=== PATIENT | female | born 2005 | race Hispanic/Latino ===

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

== ENCOUNTER 2024-01-11 16:35 | Emergency (ER) | payer OTHER, SELFPAY ==
[2024-01-11 16:35] VITALS: BP 115/68; PULSE 68; RESP 16; TEMP 36.4; O2SAT 100
--- NOTE | 2024-01-11 17:59 | ED.GENADULT ---
HPI - General Adult General Chief complaint: Head Injury Stated complaint: nose injury Source: patient and family Mode of arrival: ambulatory Limitations: no limitations History of Present Illness HPI narrative: 18-YEAR-OLD FEMALE CAME IN WITH HER MOTHER COMPLAINS OF HITTING HER NOSE WITH HER KNEE COMPLAINS OF SWELLING OVER BRIDGE OF HER NOSE AND SOME BLEEDING ON LEFT SIDE OF HER NOSE. SHE WAS WEARING A NOSE RING. THE BLEEDING IS STOPPED. SHE ALSO HAS A LITTLE BIT OF A HEADACHE. SHE HAD NO LOSS OF CONSCIOUSNESS AND DENIES ANY OTHER SWELLING LUMPS OR BUMPS WEAKNESS DIZZINESS LIGHTHEADEDNESS OR ANY OTHER COMPLAINTS. Related Data Home Medications Medication Instructions Recorded Confirmed No Home Medications 07/26/23 01/11/24 Allergies Allergy/AdvReac Type Severity Reaction Status Date / Time Milk Containing Products Allergy Mild Diarrhea Verified 01/11/24 16:44 (Dairy) peanut Allergy Mild Rash Verified 01/11/24 16:44 Penicillins Allergy Mild Itching, Verified 01/11/24 16:44 RASH Review of Systems Review of Systems: All systems reviewed & are unremarkable except as noted in HPI and below PMFSH Past Medical History Medical History Abnormal laboratory test Vulvar lesion Surgical History Surgical History History of excision of lesion Family History Family History Father Diabetes mellitus Grandparent Hypertension Other Family history of hypercholesterolemia Social History Social History Smoking status: Never smoker Second hand tobacco smoke exposure: No Alcohol intake: never Do You Feel Safe in your Home?: Yes Lack of Transportation: No Lack of Food: Never True Current Housing: I Have Housing Concerned About Future Housing: No Difficulty Paying Gas/Electric Bills: No Difficulty Paying for Meds: No Currently Unemployed: No Education: High School Diploma/GED Difficulty w/ Childcare or Family Care: No Gender identity (if verbalized by the patient): Female Exam Narrative: FEMALE NO APPARENT DISTRESS. HEAD NORMOCEPHALIC EXCEPT FOR SOME SWELLING OF THE BRIDGE OF HER NOSE WHICH IS TENDER WITHOUT ANY CREPITATION. HER RIGHT NARIS LOOKS NORMAL LEFT NARES SHOWS A NASAL RING IN PLACE WITH SOME DRIED BLOOD AROUND IT. THERE IS NO SEPTAL HEMATOMA. POSTERIOR PHARYNX IS CLEAR WITHOUT ANY ACTIVE BLEEDING NECK IS SUPPLE NONTENDER NEUROLOGICAL SHE IS ALERT AND ORIENTED MOTOR AND SENSORY GROSSLY INTACT GAIT IS NORMAL SPEECH IS NORMAL. Course Vital Signs Vital signs: Vital Signs Temperature 36.4 C 01/11/24 16:35 Pulse Rate 68 01/11/24 16:35 Respiratory Rate 16 01/11/24 16:35 Blood Pressure 115/68 01/11/24 16:35 Pulse Oximetry 100 01/11/24 16:35 Oxygen Delivery Room Air 01/11/24 16:35 Temperature 36.4 C 01/11/24 16:35 Pulse Rate 68 01/11/24 16:35 Respiratory Rate 16 01/11/24 16:35 Blood Pressure 115/68 01/11/24 16:35 Pulse Oximetry 100 01/11/24 16:35 Oxygen Delivery Room Air 01/11/24 16:35 Medical Decision Making MDM Narrative Medical decision making narrative: Patient placed in room: FOUR WITH HER MOTHER ? History and physical was performed. Independent Historian: MOTHER External Source Review: Differential Dx includes but not limited to: fracture dislocation continue Medications were Reviewed: Medications given: Independently Interpreted by me: Shared decision Making: evaluation was discussed with patient her mother all questions were asked and answered and they agreed with the plan. She would wait a week if it was still swollen she would get the outpatient x-ray of her nose with her primary care provider. And then follow-up with Plastic surgery
[2024-01-11 18:11] VITALS: BP 103/74; PULSE 72; RESP 16; TEMP 36.6; O2SAT 98
== END 2024-01-11 18:11 | disposition home or self-care (01) ==
PROVIDERS: Emergency Provider Emergency Medicine; PCP Physician Assistant
DX: S00.33XA Contusion of nose, initial encounter (principal); R04.0 Epistaxis; W22.8XXA Striking against or struck by other objects, initial encounter
CPT/HCPCS: 99282

== ENCOUNTER 2024-09-22 11:19 | Outpatient (CLI) | payer OTHER, SELFPAY ==
--- NOTE | ~2024-09-22 | XR_ITS ---
XR finger 4th RT min 2V 09/22/2024 11:47 Indication: Right fourth finger pain Procedure: 3 views right fourth finger Comparison: 07/28/2022 Findings: There is osteoarthritis of the fourth proximal interphalangeal joint. No acute fracture or traumatic malalignment. No significant soft tissue abnormality. No foreign bodies. 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 Reviewed, dictated and finalized at location A. 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
--- OUTSIDE RECORDS SUMMARY | 2024-09-22 11:23 | XMS_ITS | Data Portability ---
Author Organization [facility] Address [address] [address] Care Team Providers Care Rec Therapist Name Role Phone MPTAMIE Primary Care Provider Assessment No assessment recorded. Plan of Treatment Reminders Order Date Submit Date Provider Last Modified By Organization Details Last Modified Time Details Appointments None recorded . Lab CMP, serum or plasma 2023 024 [facility], [address] [facility] [address], [place], [address], 4 19:09:44 CBC w/ auto diff 2023 024 [facility], [address] [place] [address] 2, [place], [address], 4 19:09:45 CBC w/ auto diff 2023 024 [facility], [address], [place], [address], 4 08:24:21 TSH, ultra-se nsitive, serum 2023 024 [facility], [address], [place], [address], 4 08:24:18 CMP, serum or plasma 2023 024 [facility], [address], [place], [address], 4 08:24:18 iron + total iron-bin ding capacity (TIBC), serum 2023 024 [facility], [address], [place], [address], 4 08:24:19 ferritin , serum or plasma 2023 024 [facility], [address], [place], [address], 4 08:24:20 vitamin D, 25-hydro xy, total, serum 2023 [facility], [address], [place], [address], 4 08:24:22 magnesiu m, serum or plasma 2023 024 [facility], [address], [place], [address], 4 08:24:20 Referral hand surgeon referral 2024 025 [facility], [address] [place] [address], [facility] [address], [place], [address], 5 14:43:56 cardiolo gist referral 2023 024 TERRANCE Herrera DO, [address] [facility] [address], [place], [address], 4 10:56:25 neurolog ist referral 2023 024 yao Escobar MD, [address] [facility], [facility], [place], [address], 4 08:13:38 Procedures None recorded . Surgeries None recorded . Imaging XR, finger(s ), 2 or more view 2024 025 [email or web address], [address], [place], [address], 5 07:55:31 Medication Orders omeprazo le 20 mg capsule, delayed release 2023 024 [id number], [address] [place], [address], 4 16:15:31 Patient TargetsNo targets recorded. Patient Instructions Encounter Date Encounter Id Patient Instructions Last Modified By Organization Details Last Modified Time 07/01/2023 [id number] rhythm strip, EKG* [email or web address] Not available 07/01/2023 14:45:43 I have reviewed the patient's medical record and the note from this clinical encounter. I was available by phone for the duration of the visit. I agree with the assessment and plan with the following addendum: Pt will need to seek out care for eating disorder. This can be hard to find, tho there are several resources in the [facility] area. Daniel Engel MD [email or web address] Not available 07/05/2023 12:12:50 Reason for Referral Asw Specialist Referral for Sy ncope Referring Physician: [facility], Encounter Date: 07/01/2023 Neurologist Referral for Syn cope Referring Physician: [facility], Encounter Date: 07/01/2023 Hand Surgeon Referral for Pa in in finger of right hand Referring Physician: [facility], Encounter Date: 07/19/2024 Results Created Date Observation Date Name Description Value Unit Range Abnormal Flag Note LastModifiedBy Organization Detail LastModifiedTime 07/01/1907/02/2023 COMP. METAB OLIC PANEL (14) glucose 88 mg/dL 70-99 Not Available [facility] ([facility]) [address] [facility], [place], [address], 07/02/2023 08:24:17 07/01/19 24 07/02/2023 COMP. METAB OLIC PANEL (14) BUN 13 mg/dL 6-20 Not Available [facility] ([facility]) [address] [facility] [place], [address], 07/02/2023 08:24:17 07/01/19 24 07/02/2023 COMP. METAB OLIC PANEL (14) creatinine 0.99 mg/dL 0.57-1 .00 Not Available [facility] ([facility]) [address] [facility] [place], [address], 07/02/2023 08:24:17 07/01/19 24 07/02/2023 COMP. METAB OLIC PANEL (14) eGFR 85 mL/mi n/1.7 3 >59 Not Available [facility] ([facility]) [address] [facility] [place], [address], 07/02/2023 08:24:17 07/01/19 24 07/02/2023 COMP. METAB OLIC PANEL (14) BUN/creatini ne ratio 13 9-23 Not Available [facility] ([facility]) [address] [facility] [place], [address], 07/02/2023 08:24:17 07/01/19 24 07/02/2023 COMP. METAB OLIC PANEL (14) sodium 141 mmol/ L 134-14 4 Not Available [facility] ([facility]) [address] [facility] [place], [address], 07/02/2023 08:24:17 07/01/19 24 07/02/2023 COMP. METAB OLIC PANEL (14) potassium 3.4 mmol/ L 3.5-5. 2 below low normal Not Available [facility] ([facility]) [address] [facility] [place], [address], 07/02/2023 08:24:17 07/01/19 24 07/02/2023 COMP. METAB OLIC PANEL (14) chloride 97 mmol/ L 96-106 Not Available [facility] ([facility]) [address] [place], [address], 07/02/2023 08:24:17 07/01/19 24 07/02/2023 COMP. METAB OLIC PANEL (14) carbon dioxide, total 29 mmol/ L 20-29 Not Available [facility] ([facility]) [address], [place], [address], 07/02/2023 08:24:17 07/01/19 24 07/02/2023 COMP. METAB OLIC PANEL (14) calcium 9.5 mg/dL 8.7-10 .2 Not Available [facility] ([facility]) [address] [place], [address], 07/02/2023 08:24:17 07/01/19 24 07/02/2023 COMP. METAB OLIC PANEL (14) protein, total 7.2 g/dL 6.0-8. 5 Not Available [facility] ([facility]) [address] [place], [address], 07/02/2023 08:24:17 07/01/19 24 07/02/2023 COMP. METAB OLIC PANEL (14) albumin 4.4 g/dL 4.0-5. 0 Not Available [facility] ([facility]) [address] [place], [address], 07/02/2023 08:24:17 07/01/19 24 07/02/2023 COMP. METAB OLIC PANEL (14) globulin, total 2.8 g/dL 1.5-4. 5 Not Available [facility] ([facility]) [address] [place], [address], 07/02/2023 08:24:17 07/01/19 24 07/02/2023 COMP. METAB OLIC PANEL (14) A/G ratio 1.6 1.2-2. 2 Not Available [facility] ([facility]) [address] [place], [address], 07/02/2023 08:24:17 07/01/19 24 07/02/2023 COMP. METAB OLIC PANEL (14) bilirubin, total 0.3 mg/dL 0.0-1. 2 Not Available [facility] ([facility]) [address] [facility], [place], [address], 07/02/2023 08:24:17 07/01/19 24 07/02/2023 COMP. METAB OLIC PANEL (14) alkaline phosphatase 65 IU/L 42-106 Not Available [facility] ([facility]) [address] [facility], [place], [address], 07/02/2023 08:24:17 07/01/19 24 07/02/2023 COMP. METAB OLIC PANEL (14) AST (SGOT) 19 IU/L 0-40 Not Available [facility] ([facility]) [address] [place], [address], 07/02/2023 08:24:17 07/01/19 24 07/02/2023 COMP. METAB OLIC PANEL (14) ALT (SGPT) 13 IU/L 0-32 Not Available [facility] ([facility]) [address] [place], [address], 07/02/2023 08:24:17 07/01/19 24 07/02/2023 TSH RFX ON ABNOR MAL TO FREE T4 TSH 0.583 uIU/m L 0.450- 4.500 Not Available [facility] ([facility]) [address] [place], [address], 07/02/2023 08:24:18 07/01/19 24 07/02/2023 IRON AND TIBC iron bind.cap.(TI BC) 335 ug/dL 250-45 0 Not Available [facility] ([facility]) [address] [place], [address], 07/02/2023 08:24:19 07/01/19 24 07/02/2023 IRON AND TIBC UIBC 233 ug/dL 131-42 5 Not Available [facility] ([facility]) [address] [place], [address], 07/02/2023 08:24:19 07/01/19 24 07/02/2023 IRON AND TIBC iron 102 ug/dL 27-159 Not Available [facility] ([facility]) [address] [place], [address], 07/02/2023 08:24:19 07/01/19 24 07/02/2023 IRON AND TIBC iron saturation 30 % 15-55 Not Available [facility] ([facility]) [address] [place], [address], 07/02/2023 08:24:19 07/01/19 24 07/02/2023 MAGNE SIUM magnesium 2.5 mg/dL 1.6-2. 3 above high normal Not Available [facility] ([facility]) [address] [place], [address], 07/02/2023 08:24:20 07/01/1907/02/2023 OMKAR TIN ferritin 99 NG/mL 15-77 above high normal Not Available [facility] ([facility]) [address] [place], [address], 07/02/2023 08:24:20 07/01/1907/02/2023 CBC WITH DIFFE RENTI AL/PL ATELE T WBC 6.0 x10e3 /uL 3.4-10 .8 Not Available [facility] ([facility]) [address] [place], [address], 07/02/2023 08:24:21 07/01/19 24 07/02/2023 CBC WITH DIFFE RENTI AL/PL ATELE T RBC 4.31 x10e6 /uL 3.77-5 .28 Not Available [facility] ([facility]) [address] [facility] [place], [address], 07/02/2023 08:24:21 07/01/19 24 07/02/2023 CBC WITH DIFFE RENTI AL/PL ATELE T hemoglobin 12.6 g/dL 11.1-1 5.9 Not Available [facility] ([facility]) [address] [place], [address], 07/02/2023 08:24:21 07/01/19 24 07/02/2023 CBC WITH DIFFE RENTI AL/PL ATELE T hematocrit 37.3 % 34.0-4 6.6 Not Available [facility] ([facility]) [address] [place], [address], 07/02/2023 08:24:21 07/01/19 24 07/02/2023 CBC WITH DIFFE RENTI AL/PL ATELE T MCV 87 fL 79-97 Not Available [facility] ([facility]) [address] [place], [address], 07/02/2023 08:24:21 07/01/1907/02/2023 CBC WITH DIFFE RENTI AL/PL ATELE T MCH 29.2 pg 26.6-3 3.0 Not Available [facility] ([facility]) [address] [place], [address], 07/02/2023 08:24:21 07/01/1907/02/2023 CBC WITH DIFFE RENTI AL/PL ATELE T MCHC 33.8 g/dL 31.5-3 5.7 Not Available [facility] ([facility]) [address] [place], [address], 07/02/2023 08:24:21 07/01/19 24 07/02/2023 CBC WITH DIFFE RENTI AL/PL ATELE T RDW 11.8 % 11.7-1 5.4 Not Available [facility] ([facility]) [address] [place], [address], 07/02/2023 08:24:21 07/01/19 24 07/02/2023 CBC WITH DIFFE RENTI AL/PL ATELE T platelets 249 x10e3 /uL 150-45 0 Not Available [facility] ([facility]) [address] [facility], [place], [address], 07/02/2023 08:24:21 07/01/19 24 07/02/2023 CBC WITH DIFFE RENTI AL/PL ATELE T neutrophils 49 % notest ab. Not Available [facility] ([facility]) [address] [facility], [place], [address], 07/02/2023 08:24:21 07/01/19 24 07/02/2023 CBC WITH DIFFE RENTI AL/PL ATELE T lymphs 42 % notest ab. Not Available [facility] ([facility]) [address] [facility], [place], [address], 07/02/2023 08:24:21 07/01/19 24 07/02/2023 CBC WITH DIFFE RENTI AL/PL ATELE T monocytes 7 % notest ab. Not Available [facility] ([facility]) [address] [facility], [place], [address], 07/02/2023 08:24:21 07/01/19 24 07/02/2023 CBC WITH DIFFE RENTI AL/PL ATELE T eos 1 % notest ab. Not Available [facility] ([facility]) [address] [facility], [place], [address], 07/02/2023 08:24:21 07/01/19 24 07/02/2023 CBC WITH DIFFE RENTI AL/PL ATELE T basos 1 % notest ab. Not Available [facility] ([facility]) [address] [facility], [place], [address], 07/02/2023 08:24:21 07/01/19 24 07/02/2023 CBC WITH DIFFE RENTI AL/PL ATELE T neutrophils (absolute) 2.9 x10e3 /uL 1.4-7. 0 Not Available [facility] ([facility]) [address] [facility], [place], [address], 07/02/2023 08:24:21 07/01/19 24 07/02/2023 CBC WITH DIFFE RENTI AL/PL ATELE T lymphs (absolute) 2.5 x10e3 /uL 0.7-3. 1 Not Available [facility] ([facility]) [address] [facility], [place], [address], 07/02/2023 08:24:21 07/01/19 24 07/02/2023 CBC WITH DIFFE RENTI AL/PL ATELE T monocytes(ab solute) 0.4 x10e3 /uL 0.1-0. 9 Not Available [facility] ([facility]) [address] [facility], [place], [address], 07/02/2023 08:24:21 07/01/19 24 07/02/2023 CBC WITH DIFFE RENTI AL/PL ATELE T eos (absolute) 0.1 x10e3 /uL 0.0-0. 4 Not Available [facility] ([facility]) [address] [facility], [place], [address], 07/02/2023 08:24:21 07/01/19 24 07/02/2023 CBC WITH DIFFE RENTI AL/PL ATELE T baso (absolute) 0.0 x10e3 /uL 0.0-0. 2 Not Available [facility] ([facility]) [address] [place], [address], 07/02/2023 08:24:21 07/01/19 24 07/02/2023 CBC WITH DIFFE RENTI AL/PL ATELE T immature granulocytes 0 % notest ab. Not Available [facility] ([facility]) [address] [place], [address], 07/02/2023 08:24:21 07/01/19 24 07/02/2023 CBC WITH DIFFE RENTI AL/PL ATELE T immature grans (abs) 0.0 x10e3 /uL 0.0-0. 1 Not Available [facility] ([facility]) [address] [facility], [place], [address], 07/02/2023 08:24:21 07/01/19 24 07/02/2023 VITAM IN D, 25-HY DROXY vitamin D, 25-hydroxy 46.0 NG/mL 30.0-1 00.0 Vitam in D defic iency has been defin ed by the Insti tute of Medic ine and an Endoc rine Socie ty pract ice guide line as a level of serum 25-OH vitam in D less than 20 ng/mL (1,2) . The Endoc rine Socie ty went on to furth er defin e vitam in D insuf ficie ncy as a level betwe en 21 and 29 ng/mL (2). 1. IOM (Inst itute of Medic ine). 2010. Dieta ry refer ence pamela es for calci um and D. Meme epperson [place]: [facility] . 2. Amy bello MF, Demetrice casas [place], Johanna off-F errar i GURROLA, et al. Evalu ation , treat ment, and preve ntion of vitam in D defic iency : an Endoc rine Socie ty clini vinicius pract ice guide line. JCEM. 2010; 96(7) :1911 -30. Not Available [facility] ([facility]) [address] [facility], [place], [address], 07/02/2023 08:24:22 11/09/19 24 11/09/2023 COMP. METAB OLIC PANEL (14) glucose 86 mg/dL 70-99 Not Available [facility] [address] [place], [address], 11/09/2023 19:09:44 11/09/19 24 11/09/2023 COMP. METAB OLIC PANEL (14) BUN 10 mg/dL 6-20 Not Available [facility] [address] [place] [address], [address], 11/09/2023 19:09:44 11/09/19 24 11/09/2023 COMP. METAB OLIC PANEL (14) creatinine 0.79 mg/dL 0.76-1 .27 Not Available [facility] [address] [place] [address], [address], 11/09/2023 19:09:44 11/09/19 24 11/09/2023 COMP. METAB OLIC PANEL (14) eGFR 111 >=60 Units for eGFR value s are mL/mi n/1.7 3 The eGFR Calcu latio n has not been valid ated for patie nts under the age of 18. If test resul ts are displ ayed for a patie nt under the age of 18, disre hyacinth that value . Not Available [facility] [address] [place] [address], [address], 11/09/2023 19:09:44 11/09/19 24 11/09/2023 COMP. METAB OLIC PANEL (14) BUN/creatini ne ratio 12 9-23 Not Available [facility] [address] [place] [address], [address], 11/09/2023 19:09:44 11/09/19 24 11/09/2023 COMP. METAB OLIC PANEL (14) sodium 140 mmol/ L 134-14 4 Not Available [facility] [address] [place] [address], [address], 11/09/2023 19:09:44 11/09/19 24 11/09/2023 COMP. METAB OLIC PANEL (14) potassium 4.3 mmol/ L 3.5-5. 2 Not Available [facility] [address] [place] [address], [address], 11/09/2023 19:09:44 11/09/19 24 11/09/2023 COMP. METAB OLIC PANEL (14) chloride 101 mmol/ L 96-106 Not Available [facility] [address] [place] [address], [address], 11/09/2023 19:09:44 11/09/19 24 11/09/2023 COMP. METAB OLIC PANEL (14) carbon dioxide, total 29 mmol/ L 20-29 Not Available [facility] [address] [place] [address], [address], 11/09/2023 19:09:44 11/09/19 24 11/09/2023 COMP. METAB OLIC PANEL (14) calcium 9.8 mg/dL 8.7-10 .2 Not Available [facility] [address] [place] [address], [address], 11/09/2023 19:09:44 11/09/19 24 11/09/2023 COMP. METAB OLIC PANEL (14) protein, total 7.2 g/dL 6.0-8. 5 Not Available [facility] [address] [place] [address], [address], 11/09/2023 19:09:44 11/09/19 24 11/09/2023 COMP. METAB OLIC PANEL (14) albumin 4.4 g/dL 4.0-5. 0 Not Available [facility] [address] [place] [address], [address], 11/09/2023 19:09:44 11/09/19 24 11/09/2023 COMP. METAB OLIC PANEL (14) globulin, total 2.8 g/dL 1.5-4. 5 Not Available [facility] [address] [place] [address], [address], 11/09/2023 19:09:44 11/09/19 24 11/09/2023 COMP. METAB OLIC PANEL (14) A/G ratio 2.0 1.2-2. 2 Not Available [facility] [address] [place], [address], 11/09/2023 19:09:44 11/09/19 24 11/09/2023 COMP. METAB OLIC PANEL (14) bilirubin, total 0.3 mg/dL 0.0-1. 2 Not Available [facility] [address] [place], [address], 11/09/2023 19:09:44 11/09/19 24 11/09/2023 COMP. METAB OLIC PANEL (14) alkaline phosphatase 61 IU/L 42-106 Not Available [facility] [address] [place], [address], 11/09/2023 19:09:44 11/09/19 24 11/09/2023 COMP. METAB OLIC PANEL (14) AST (SGOT) 20 IU/L 0-40 Not Available [facility] Department [address] [place] [address], [address], 11/09/2023 19:09:44 11/09/19 24 11/09/2023 COMP. METAB OLIC PANEL (14) ALT (SGPT) 12 IU/L 0-32 Not Available [facility] Department [address] [place] [address], [address], 11/09/2023 19:09:44 11/09/19 24 11/09/2023 CBC WITH DIFFE RENTI AL/PL ATELE T WBC 7.2 x10e3 /uL 3.4-10 .8 Not Available [facility] [address] [place], [address], 11/09/2023 19:09:45 11/09/19 24 11/09/2023 CBC WITH DIFFE RENTI AL/PL ATELE T RBC 4.39 x10e6 /uL 3.77-5 .28 Not Available [facility] [address] [place] [address], [address], 11/09/2023 19:09:45 11/09/19 24 11/09/2023 CBC WITH DIFFE RENTI AL/PL ATELE T hemoglobin 12.7 g/dL 11.1-1 5.9 Not Available [facility] [address] [place], [address], 11/09/2023 19:09:45 11/09/19 24 11/09/2023 CBC WITH DIFFE RENTI AL/PL ATELE T hematocrit 39.0 % 34.0-4 6.6 Not Available [facility] [address] [place], [address], 11/09/2023 19:09:45 11/09/19 24 11/09/2023 CBC WITH DIFFE RENTI AL/PL ATELE T MCV 89 fL 79-97 Not Available [facility] [address] [place], [address], 11/09/2023 19:09:45 11/09/19 24 11/09/2023 CBC WITH DIFFE RENTI AL/PL ATELE T MCH 28.9 pg 26.6-3 3.0 Not Available [facility] [address] [place], [address], 11/09/2023 19:09:45 11/09/19 24 11/09/2023 CBC WITH DIFFE RENTI AL/PL ATELE T MCHC 32.6 g/dL 31.5-3 5.7 Not Available [facility] [address] [place], [address], 11/09/2023 19:09:45 11/09/19 24 11/09/2023 CBC WITH DIFFE RENTI AL/PL ATELE T RDW 12.7 % 11.5-1 4.5 Not Available [facility] [address] [place], [address], 11/09/2023 19:09:45 11/09/19 24 11/09/2023 CBC WITH DIFFE RENTI AL/PL ATELE T platelets 299 x10e3 /uL 150-45 0 Not Available [facility] [address] [place], [address], 11/09/2023 19:09:45 11/09/19 24 11/09/2023 CBC WITH DIFFE RENTI AL/PL ATELE T neutrophils 61 % notest b. Not Available [facility] [address] [place], [address], 11/09/2023 19:09:45 11/09/19 24 11/09/2023 CBC WITH DIFFE RENTI AL/PL ATELE T lymphs 32 % notest b. Not Available [facility] [address] [place], [address], 11/09/2023 19:09:45 11/09/19 24 11/09/2023 CBC WITH DIFFE RENTI AL/PL ATELE T monocytes 6 % notest b. Not Available [facility] [address] [place], [address], 11/09/2023 19:09:45 11/09/19 24 11/09/2023 CBC WITH DIFFE RENTI AL/PL ATELE T eos 1 % notest b. Not Available [facility] [address] [place], [address], 11/09/2023 19:09:45 11/09/19 24 11/09/2023 CBC WITH DIFFE RENTI AL/PL ATELE T basos 0 % notest b. Not Available [facility] [address] [place], [address], 11/09/2023 19:09:45 11/09/19 24 11/09/2023 CBC WITH DIFFE RENTI AL/PL ATELE T neutrophils (absolute) 4.4 x10e3 /uL 1.4-7. 0 Not Available [facility] [address] [place], [address], 11/09/2023 19:09:45 11/09/19 24 11/09/2023 CBC WITH DIFFE RENTI AL/PL ATELE T lymphs (absolute) 2.3 x10e3 /uL 0.7-3. 1 Not Available [facility] [address] [place], [address], 11/09/2023 19:09:45 11/09/19 24 11/09/2023 CBC WITH DIFFE RENTI AL/PL ATELE T monocytes(ab solute) 0.4 x10e3 /uL 0.1-0. 9 Not Available [facility] [address] [place], [address], 11/09/2023 19:09:45 11/09/19 24 11/09/2023 CBC WITH DIFFE RENTI AL/PL ATELE T eos (absolute) 0.1 x10e3 /uL 0.0-0. 4 Not Available [facility] [address] [place], [address], 11/09/2023 19:09:45 11/09/19 24 11/09/2023 CBC WITH DIFFE RENTI AL/PL ATELE T baso (absolute) 0.0 x10e3 /uL 0.0-0. 2 Not Available [facility] [address] [place], [address], 11/09/2023 19:09:45 11/09/19 24 11/09/2023 CBC WITH DIFFE RENTI AL/PL ATELE T immature granulocytes 0.3 % notest b. Not Available [facility] [address] [place], [address], 11/09/2023 19:09:45 11/09/19 24 11/09/2023 CBC WITH DIFFE RENTI AL/PL ATELE T immature grans (abs) 0.0 x10e3 /uL 0.0-0. 1 Not Available [facility] [address] [place], [address], 11/09/2023 19:09:45 11/09/19 24 11/09/2023 CBC WITH DIFFE JENNIFER AL/PL ATELE T NRBC 0 % 0-0 Not Available [facility] [address], [place], [address], 11/09/2023 19:09:45 Result Notes None recorded. 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 Medical Equipment None Reported. Allergies Allergen ID Allergen Name Allergen Category Reaction Reaction Severity Criticality Documentation Date Start Date Code Code System Note Provider Name and Address Organization Details Recorded Time 102354 Product containin g penicilli n (product) medicatio n rash Not available Not available 07/01/2023 28791 [address], [place] - [facility] 4 14:08:37 [id number] Milk (substanc e) food,medi cation diarrhea Not available Not available 07/01/2023 31860 [address], [place] [facility] 4 14:08:55 Medications Name Sig Start Date Stop Date Status Note LastModified by Organization Details LastModified Time potassium chloride 20 mEq/15 mL oral liquid TAKE 7.5 MILLILITERS DILUTED IN ONE-HALF GLASS OF COLD WATER OR JUICE BY ORAL ROUTE ONCE DAILY active Not Available Not Available N ot Available buspirone 10 mg tablet TAKE 1 TABLET BY MOUTH TWICE A DAY active Not Available Not Available No t Available omeprazole 20 mg capsule,randy yed release Take 1 capsule every day by oral route for 30 days. 2023 active Not Available Not Available Not Avai lable naproxen 500 mg tablet TAKE 1 TABLET BY MOUTH TWICE A DAY NEEDED FOR PAIN active Not Available Not Available No t Available Klor-Con M20 mEq tablet,exten ded release TAKE 1 TABLET BY MOUTH EVERY DAY WITH FOOD active Not Available Not Available No t Available omeprazole 20 mg-sodium bicarbonate 1,680 mg oral packet active Not Available Not Available Not Available Vestura (28) 3 mg-0.02 mg tablet TAKE 1 TABLET BY MOUTH DAILY active Not Available Not Available Not Available Vitals Date Recorded Body height Body mass index (BMI) Body mass index (BMI) Percentile per age and sex Body weight Heart rate Oxygen saturation Oxygen saturation in Arterial blood by Pulse oximetry Systolic blood pressure Diastolic blood pressure Provider Name and Address Organization Details Last Updated DateTime 4 162.56 cm 23.6 kg/m2 72 % 30658.5 5 g 77 /min 96 % 96 % 103 mm[Hg] 65 mm[Hg] Liliana Guerrero MA [facility] 4 14:13:36 Date Recorded Body height Body mass index (BMI) Percentile per age and sex Body mass index (BMI) Body weight Heart rate Systolic blood pressure Diastolic blood pressure Provider Name and Address Organization Details Last Updated DateTime 5 162.56 cm 48 % 21.5 kg/m2 15260.0 5 g 69 /min 96 mm[Hg] 63 mm[Hg] Liliana Guerrero MA [facility] SIF 5 15:37:39 Date Recorded Body height Heart rate Oxygen saturation Oxygen saturation in Arterial blood by Pulse oximetry Systolic blood pressure Diastolic blood pressure Provider Name and Address Organization Details Last Updated DateTime 4 162.56 cm 79 /min 99 % 99 % 106 mm[Hg] 68 mm[Hg] Liliana Guerrero MA [facility] 4 12:26:15 Date Recorded Body height Body mass index (BMI) Body mass index (BMI) Percentile per age and sex Body weight Heart rate Oxygen saturation Oxygen saturation in Arterial blood by Pulse oximetry Systolic blood pressure Diastolic blood pressure Provider Name and Address Organization Details Last Updated DateTime 4 162.56 cm 23.7 kg/m2 71 % 75181.7 5 g 76 /min 98 % 98 % 99 mm[Hg] 62 mm[Hg] Liliana Guerrero [place] [facility] 16:00:33 Social History Question Answer Notes LastModified by Organizat ion Details LastModified Time Tobacco Smoking Status Never Smoker Liliana Guerrero MA null, [place] - [facility] 07/01/2023 14:10:02 What Was The Date Of Your Most Recent Tobacco Screening? 07/19/2024 Information not available 07/19/2024 Has Tobacco Cessation Counseling Been Provided? Yes Information not available 07/01/2023 On What Date Was Tobacco Cessation Counseling Provided? 07/19/2024 Information not available 07/19/2024 Sex: Unknown Functional Status Question Answer Note LastModified by Organization D etails LastModified Time Do you or have you ever used any other forms of tobacco or nicotine? No Information not available 07/01/2023 What is your level of alcohol consumption? None Information not available 07/01/2023 Mental Status None recorded. Family History Relationship Description Onset Age of this Age Resolved Age Notes LastModified by Organization Details LastModified Time Father No current problems or disability Not available 06/30 14:09:52 Father Diabetes mellitus Not available 2023 14:11:22 Mother No current problems or disability Not available 06/30 14:09:52 Sister Asthma Not available 07/01/2023 14:11:13 Medical History Condition Response Coronary Artery Disease N Other N High Blood Pressure N Atrial Fibrillation N Thyroid Problems N Kidney or Bladder Problems N GI Problems N Depression N COPD N Blood Clots N Skin Problems N Anemia N Heart Attack (ND) N Diabetes N Anxiety Disorder N Muscle, Joint, or Bone Problems N Seizures/Epilepsy N Acid Reflux (GERD) N Cancer N Stroke N Asthma N Allergies N High Cholesterol N Hepatitis N Liver Disease N Headaches N Osteoporosis N Heart Failure N Gynecological History Statement/Question Response Date of LMP Obstetrics History GPAL:G 0 P 0 0 0 0 Type Value Multiple Births 0 Full Term 0 Induced 0 Spontaneous 0 Premature 0 Living 0 Ectopics 0 Total 0 Immunizations Vaccine Type Date Status Note Provider Nam e and Address Organization Details Recorded Time meningococcal B, OMV 0 completed Liliana Guerrero [place], [place] [facility] 07/01/2023 13:56:36 HPV9 7 completed Liliana [place] [facility] 07/01/2023 13:56:36 HPV9 6 completed Lil[place] [facility] 07/01/2023 13:56:36 Influenza, live, trivalent, intranasal 2 completed Lil[place] [facility] 07/01/2023 13:56:36 meningococcal ACWY, unspecified formulation 0 completed Lil[place] [facility] 07/01/2023 13:56:36 MMR 1 completed Lil[place] [facility] 07/01/2023 13:56:36 MMR 9 completed Lil[place] [facility] 07/01/2023 13:56:36 MMR 6 completed Lil[place] [facility] 07/01/2023 13:56:36 DTaP-IPV 1 completed [place] [facility] 07/01/2023 13:56:36 Tdap 6 ronda [place] [facility] 07/01/2023 13:56:36 Pneumococcal conjugate PCV 13 6 ronda [place] [facility] 07/01/2023 13:56:36 Pneumococcal conjugate PCV 13 6 [place]onda [place] [facility] 07/01/2023 13:56:36 Pneumococcal conjugate PCV 13 5 ronda [place] [facility] 07/01/2023 13:56:36 Pneumococcal conjugate PCV 13 5 completed Liliana [place] [facility] 07/01/2023 13:56:36 varicella 0 ronda Guerre[place], [place] [facility] 07/01/2023 13:56:36 varicella 4 completed Lil[place] [facility] 07/01/2023 13:56:36 varicella 9 completed [place] [facility] 07/01/2023 13:56:36 OPV 6 completed [place] [facility] 07/01/2023 13:56:36 OPV 9 completed [place] [facility] 07/01/2023 13:56:36 OPV 5 completed [place] [facility] 07/01/2023 13:56:36 OPV 5 completed [place] [facility] 07/01/2023 13:56:36 HPV, quadrivalent 6 completed [place] [facility] 07/01/2023 13:56:36 Hep B, adolescent or pediatric 6 completed [place] [facility] 07/01/2023 13:56:36 Hep B, adolescent or pediatric 5 completed [place] [facility] 07/01/2023 13:56:36 Hep B, adolescent or pediatric 5 completed [place] [facility] 07/01/2023 13:56:36 Hep A, ped/adol, 3 dose 7 completed [place] [facility] 07/01/2023 13:56:36 Hep A, ped/adol, 3 dose 0 completed [place] [facility] 07/01/2023 13:56:36 Hep A, ped/adol, 3 dose 8 completed [place] [facility] 07/01/2023 13:56:36 Hib (HbOC) 6 completed [place] [facility] 07/01/2023 13:56:36 Hib (HbOC) 6 completed [place] [facility] 07/01/2023 13:56:36 Hib (HbOC) 5 completed [place] [facility] 07/01/2023 13:56:36 Hib (HbOC) 5 completed [place] [facility] 07/01/2023 13:56:36 meningococcal MCV4P 4 completed [place] [facility] 07/01/2023 13:56:36 meningococcal MCV4P 2 completed [place] [facility] 07/01/2023 13:56:36 meningococcal MCV4P 6 completed [place] [facility] 07/01/2023 13:56:36 DTaP 6 completed [place] [facility] 07/01/2023 13:56:36 DTaP 5 completed [place] [facility] 07/01/2023 13:56:36 DTaP 5 completed [place] [facility] 07/01/2023 13:56:36 DTaP 6 completed [place] [facility] 07/01/2023 13:56:36 DTaP, unspecified formulation 9 completed [place] [facility] 07/01/2023 13:56:36 Influenza, live, quadrivalent, intranasal 5 completed [place] [facility] 07/01/2023 13:56:36 Influenza, split virus, quadrivalent, PF 7 completed [place] [facility] 07/01/2023 13:56:36 Influenza, split virus, quadrivalent, PF 7 completed GENA Bolden, [place] - [facility] 07/01/2023 13:56:36 Influenza, split virus, quadrivalent, PF 0 completed GENA [place], [place] [facility] 07/01/2023 13:56:36 Past Encounters Encounter ID Performer Location Encounter Start Date Encounter Closed Date Diagnosis/Indication Diagnosis SNOMED-CT Code Diagnosis ICD10 Code Diagnosis Note [id number] BRIGITTE DESIR [facility] [address] [place] [address] 07/01/2023 13:34:40 07/01/2023 15:59:28 Syncope [id number] R55 had hospital visit in [facility] episodes passing out. abnormal ekg and K in hospital (requestin g records). CT and MRI normal per patient. mom concerned for bulimia but patient denies. she does spend 2 hours in gym and drinks 1 gallon of water. unable to provide much diet info, will have f/u and will bring log. discussed importance of proper nutrition, over-hydra ting. denies anxiety and depression .PEX: A0X3, CN normal, RRR, lungs clear - cardiology - she is heading to get ekg now- labs in office [id number] Daniel peterson MD [facility] [address] [place] [address] 11/09/2023 11:52:51 11/09/2023 13:38:00 Syncope [id number] R55 had hospital visit in [facility] episodes passing out. abnormal ekg and K in hospital (requestin g records). CT and MRI normal per patient. has not had any more episodes. she admits today she was throwing up food before to control weight. She is no longer doing this.PEX: A0X3, CN normal, RRR, lungs clear - cardiology visit completed, normal Binge eating disorder 43 [id number] F50.81 admits to dealing with vomiting episodes before during toxic relationsh ipno longer purging, endorses postive sef-boiler coverer epeat cmp due to low potassiumm om concerned for bruising, check cbc (normal 06/2023) [id number] Karan Bob MD [facility] [address] [place] [address] 04/10/2024 15:52:57 04/10/2024 16:33:41 Epigastric pain [id number] R10.13 three episodes of epigastric pain w/o red flag sx after spicy foods or tomatoes. f/u one month. 1.Avoid lying flat 3 to 4 hours after eating or drinking.2 .Elevate the head of bed 4-8 inches.3.A void tight clothing around the waist.4.De crease dietary fat intake.5. Avoid acidic foods (citrus and tomato-bas ed products), alcohol, caffeinate d beverages, chocolate, onions, garlic, salt, and peppermint oil.6. Avoid large meals.7. Avoid drinking coffee, or carbonated beverages. 8. Weight loss can help with symptoms, try to diet and exercise. [id number] Karan Bob MD [facility] [address] [place] [address] 07/19/2024 15:31:59 07/19/2024 16:41:23 Pain in finger of right hand [id number] 40217 M79.644 Mike fractured finger in 2022 and continues to have swelling, pain and limited ROM since this time. would like to see hand surgeon. PEX: R hand ring finger PIP swollen and unable to bend Health Concerns Section Related Observation LastModified by Organization Detai ls LastModified Time None Recorded Concern Status LastModified by Organization Details LastModified Time None Recorded Advance Directives Directive None Recorded Payers Encounter Date Sequence Insurance Name Policy Number Policy [place] Covered Member ID [place] Member ID Guarantor Name 07/01/2023 1 [facility] (MEDICARE REPLACEMENT/AD VANTAGE - HMO) Mike Wang [id number] Mike Wang 11/09/2023 1 [facility] - DOS ON OR AFTER 20 (MEDICAID REPLACEMENT - HMO) Mike Wang [id number] Mike Flemingzares 04/10/2024 1 [facility] - DOS ON OR AFTER 20 (MEDICAID REPLACEMENT - HMO) Mike Wang [id number] Mike Wang 07/19/2024 1 [facility] - DOS ON OR AFTER 20 (MEDICAID REPLACEMENT - HMO) Mike Wang [id number] Mike Wang Notes Date Note Type Note Provider Name and Address Organization Details Recorded Time 07/01/2023 text/html Mike is an 17 YO F presenting with syncopal episodes She has been passing out since last january. She has [facility] and they told her she had low potassium and abnormal EKG but normal Head scans. she says she has had MRI and CT. Will obtain records. episodes have been happening 1-2 x per day. She states she eats normal meals, works out 2 hours per day, drinks 1 gallon of water. States she has not worked out this week and has not had any episodes. Patient is daughter from another patient here. Mother advised me patient does have bulimia. I asked patient if she throws up, has diarrhea (laxatives) or had restrictive eating and she replied no. She has not seen cardiology or neurology. 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 She denies anxiety or depression. states she does have stress when in school but is on break this week. Is in a happy relationship. declines sti testing today, I had them checked a few months ago. denies sx. denies drug use/alcohol use. Daniel Engel MD Attn: Accounting[address] [place], [address], [facility] 07/05/2023 12:12:54 11/09/2023 text/html Patient here wit h mom today for syncope f/u today admits she was purging after eating while in a toxic relationship. Since breaking up in June she is no longer vomiting after eating. She has not had any more episodes of syncope or pre-syncope. mom is here and is supportive. They feel syncope was likely due to not eating. her last labs show a low potassium. Since last visit patient has seen college dean, Dr Herrera. He feels syncope is likely due to vasovagal. BRIGITTE DESIR Attn: Accounting[address] [place], [address], [facility] 11/09/2023 13:27:43 04/10/2024 text/html mike is here for abdominal pain She has had three episode in the last month of bloating and some epigastric pain. She stopped spicy foods and improved but last night did have epigastric pain and this morning had one episode of loose stool. She has no pain today. She did have tomatoes last night. denies chills, body aches , fever, joint pain, blood in stool, vomiting, nausea. has not tried anything otc. She feels like it is the spicy foods. BRIGITTE DESIR Attn: Accounting[address] [place], [address], [facility] 04/10/2024 16:24:41 07/19/2024 text/html Mike is here for swelling in R hand middle finger R hand dominant patient fractured her R hand ring finger in 2022 playing soccer and did not see ortho. I was just told to wear a brace for a few weeks. She was told the swelling would subside but it has not. She is unable to bend finger. She takes sign language and has trouble signing in her class. finger also causes pain. saw pcp and got images from [facility]. BRIGITTE DESIR Attn: Accounting[address] [facility], [place], [address], [facility] 07/19/2024 16:28:57 OBGyn Episode No OBEpisode recorded.
--- OUTSIDE RECORDS SUMMARY | 2024-09-22 11:23 | XMS_ITS | Clinical Summary ---
Author Organization [facility] Address [address] [place] [address] Phone Care Team Providers Care Rockboard Lather Name Role Phone MickiShima massey Delicia GONZALEZ Primary Care Provider [phone] Luan Escobar MD Unavailable [phone] Allergies Active Allergy Reactions Criticality Noted Date Comments Lactase-Lactobacillus Diarrhea 07/14/2023 Peanut Oil Unknown 11/30/2023 Penicillins Rash 07/14/2023 Medications APPLE CIDER VINEGAR PO Take by mouth. Acti ve Cyanocobalamin (B-12 PO) Take by mouth. Activ e other by Other route. DOMONIQUE CARLSON Active Family History Medical History Relation Name Comments No Known Problems Father Diabetes Mother Asthma Sister Relation Name Status Comments Father Alive Mother Alive Sister Alive Social History Tobacco Use Types Packs/Day Years Used Date Smoking Tobacco: Never Smokeless Tobacco: Never Tobacco Cessation:Counseling Given: Not Answered Alcohol Use Standard Drinks/Week Comments Never 0 (1 standard drink = 0.6 oz pur e alcohol) Comments Unknown Sex and Gender Information Value Date Recorded Sex Assigned at Not on file Legal Sex Female 8:23 AM CDT Gender Identity Not on file Sexual Orientation Not on file Last Filed Vital Signs Vital Sign Reading Time Taken Comments Blood Pressure 108/70 11/30/2023 1:43 PM CDT Pulse 82 11/30/2023 1:43 PM CDT Temperature 36.3 C (97.3 F) 11/30/2023 1:43 PM CDT Respiratory Rate 16 11/30/2023 1:43 PM CDT Oxygen Saturation 99% 11/30/2023 1:43 PM CDT Inhaled Oxygen Concentration - - Weight - - Height 162.6 cm (5' 4) 07/14/2023 4:02 PM CDT Body Mass Index - - Plan of Treatment Health Maintenance Due Date Last Done Comments Hepatitis C Virus (HCV) Screening 2004 Meningococcal B Immunization (1 of 2 - Standard) 2020 10/21/2009 Influenza Immunization (#1) 12/19/202301/17, 01/20/2017, 05/22/2016, Additional history exists SARS-COV-2 Immunization ( season) 2023 Respiratory Syncytial Virus (RSV) Immunization (Adult) (1 - 1-dose 75+ series) 12/14/2079 Hepatitis B Immunization Completed 006, 02/16/2005, 2004 Pneumococcal Immunization Combined Completed 01/04/2006, 06/23/2005, 03/30/2005, Additional history exists Hepatitis A Immunization Discontinued 010, 01/31/2008, 07/20/2006 Measles Mumps Rubella (MMR) Immunization Discontinued 08/30/2010, 12/10/2008, 01/04/2006 Polio (IPV) Immunization Discontinued 011, 12/10/2008, 06/23/2005, Additional history exists Varicella Immunization Discontinued 4, 05/12/2009, 12/10/2008 DTaP/Tdap/Td Immunization Discontinued 2015, 08/30/2010, 12/10/2008, Additional history exists TdaP Immunization Completed 01/20/2016 Human Papillomavirus (HPV) Immunization Completed 05/22/2016, 01/20/2016, 11/11/2015 Meningococcal Immunization (ACWY) Completed 12/04/2021, 01/20/2016, 11/07/2013, Additional history exists Rotavirus Immunization Aged Out No lo nger eligible based on patient's age to complete this topic Insurance MEDICAID [employer] Care Teams Rockboard Lather Relationship Specialty Start Date End Date Shima Sweet PAC [address] [place] [address] PCP - General Physician Accounting Consultant 07/08/23 Luan Escobar MD [address] [place] [address] Consulting Physician Neurology 11/30/23
== END 2024-09-22 11:20 | disposition home or self-care (01) ==
PROVIDERS: PCP Physician Assistant; Visit Provider Physician Assistant
DX: M79.644 Pain in right finger(s) (principal); M19.041 Primary osteoarthritis, right hand
CPT/HCPCS: 73140